=== PATIENT | male | born 1990 | race Caucasian/White ===

== ENCOUNTER 2017-02-18 17:50 | Emergency (ER) | payer OTHER ==
[~2017-02-18] VITALS: Ht 185.4 cm; Wt 77.1 kg
[~2017-02-18 17:50] MED LIST: COMPLERA 200 MG1 TAB PO; FLEXERIL 5MG TAB5 MG PO; IBUPROFEN800 M1 PO; LEVOTHYROXINE0.15 MG PO; MOBIC15 MG PO; MOTRIN800 MG PO; PERCOCET 325 MG1 TAB PO; ZOFRAN 4 MG TABL4 MG PO
[2017-02-18 18:19] LABS: ABSOLUTE BASOPHIL COUNT 0.1 /CUMM (0.0-0.2); ABSOLUTE EOSINOPHIL COUNT 0.4 /CUMM (0.0-0.7); ABSOLUTE LYMPH COUNT 3.5 /CUMM (1.2-3.4); ABSOLUTE MONOCYTE COUNT 0.7 /CUMM (0.10-0.60); BASOPHIL % 0.5 % (0.0-2.0); GRANULOCYTE % 52.1 % (42.2-75.2); HEMATOCRIT 39.1 % (42-52); MEAN CORPUSCULAR HGB 26.9 PG (27.0-31.0); MEAN CORPUSCULAR HGB CONC 33.6 G/DL (33.0-37.0); MEAN CORPUSCULAR VOLUME 80.1 FL (80.0-94.0); MEAN PLATELET VOLUME 9.1 FL (7.4-10.4); PLATELET COUNT 380 /CUMM (130-400); RBC DISTRIBUTION WIDTH 17.1 % (11.5-14.5); RED BLOOD CELL CT 4.88 /CUMM (4.70-6.10); WHITE BLOOD CELL COUNT 9.6 /CUMM (4.8-10.8)
[2017-02-18] MEDS ORDERED: LEVOTHYROXINE175 MCG PO (19:00)
[2017-02-18] MEDS ORDERED: COMPLERA TABLE1 EACH PO (19:00)
[2017-02-18 19:51] VITALS: BP 119/65
--- NOTE | 2017-02-18 20:23 | RADIOLOGY REPORT ---
EXAMINATION: XR CHEST CLINICAL INFORMATION: Chest pain COMPARISON: None TECHNIQUE: 2 views of the chest were obtained. FINDINGS: Partial visualization of cervical fusion hardware. Scoliotic curvature of the spine. The lungs are well expanded. No consolidation, edema, or effusion. While the left costophrenic angle appears blunted on the frontal view, this does not persist on the lateral view. No pneumothorax. The cardiomediastinal silhouette is within normal limits. IMPRESSION: No acute pulmonary findings.
--- NOTE | 2017-02-18 20:31 | ED CARDIAC/CP/PALPITATIONS ---
History of Present Illness General Chief Complaint: Chest Pain Stated Complaint: CHEST PAIN ALL DAY, NOW L HAND NUMB Source: patient Exam Limitations: no limitations Vital Signs & Intake/Output Vital Signs & Intake/Output Vital Signs Date Time Temp Pulse Resp B/P Pulse O2 O2 Flow FiO2 Ox Delivery Rate 02/18 1951 97.9 72 18 119/65 97 Room Air 02/18 1950 98 Room Air 02/18 1804 98.3 77 16 134/83 96 Allergies Coded Allergies: metoclopramide (From REGLAN) (DYSTONIC REACTION 01/18/16) Reconcile Medications Emtricitab/Rilpivirine/Tenofov (Complera Tablet) 200 MG-25 MG-300 MG TABLET 1 TAB PO DAILY ANTIVIRAL (Reported) Levothyroxine Sodium 175 MCG TABLET 1 TAB PO DAILY THYROID (Reported) Triage Note: PT STATES HE HAS HAD CHEST PAIN FOR 1 WEEK AND THEN TODAY HE HAD TINGLING RUNNING DOWN HIS LEFT ARM AND NUMBNESS. Triage Nurses Notes Reviewed? yes Onset: Abrupt Duration: week(s): (1), constant, continues in ED Timing: recent history Quality/Severity: moderate Location: left chest Radiation: no radiation HPI: 26-year-old male comes into emergency room with complaints of left-sided chest pain has been going on for 1 week continuously. Pain is now shooting down into his left arm. Pain is worse with movement. Denies any fever chills cough. She reports that today he has had some mild heaviness with his breathing as he describes it. Denies any prior history of this. Denies any trauma. Denies any other associated symptoms. Patient is feeling some associated tingling in his hand. Past History Travel History Traveled to [place] past 21 day No Medical History Any Pertinent Medical History? 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 No Review of Systems Review of Systems Constitutional: Reports: no symptoms. EENTM: Reports: no symptoms. Respiratory: Reports: see HPI. Cardiovascular: Reports: see HPI. GI: Reports: no symptoms. Genitourinary: Reports: no symptoms. Musculoskeletal: Reports: see HPI. Skin: Reports: no symptoms. Neurological/Psychological: Reports: no symptoms. Hematologic/Endocrine: Reports: no symptoms. Immunologic/Allergic: Reports: no symptoms. All Other Systems: Reviewed and Negative Physical Exam Physical Exam General Appearance: well developed/nourished, no apparent distress, alert Head: atraumatic, normal appearance Eyes: Bilateral: normal appearance, EOMI. Ears, Nose, Throat: normal pharynx, hearing grossly normal Neck: normal inspection, full range of motion Respiratory: normal breath sounds, no respiratory distress, chest wall tenderness left side Cardiovascular: regular rate/rhythm Gastrointestinal: soft Rectal: normal exam Back: normal inspection Extremities: normal inspection, normal range of motion Neurologic/Psych: awake, alert, oriented x 3, normal gait, normal mood/affect Skin: intact, normal color Core Measures ACS in differential dx? No Severe Sepsis Present: No Septic Shock Present: No Progress Differential Diagnosis: AMI, cholecystitis, costochondritis, musculoskeletal pain, myocarditis, pericarditis, pneumonia, pneumothorax, pulmonary embolism, PUD/GERD, PVCs/PACs, respiratory failure, unstable angina Plan of Care: Orders Procedure Date/time Status TROPONIN LEVEL 02/18 180 Complete MAGNESIUM 02/18 180 Complete COMPREHENSIVE METABOLIC PANEL 02/18 1802 Complete CHOLESTEROL 02/18 1802 Complete CBC WITHOUT DIFFERENTIAL 02/18 180 Complete EKG 02/18 1751 Active Laboratory Tests 02/18/17 1802: Anion Gap 14, Estimated GFR > 60, BUN/Creatinine Ratio 10.0, Glucose 107 H, Calcium 9.2, Magnesium 1.9, Total Bilirubin 0.6, AST 22, ALT 31, Alkaline Phosphatase 63, Troponin I < 0.01, Total Protein 7.4, Albumin 4.4, Globulin 3.0, Albumin/Globulin Ratio 1.5, Cholesterol 153, CBC w Diff NO MAN DIFF REQ, RBC 4.88, MCV 80.1, MCH 26.9 L, RDW 17.1 H, MPV 9.1, Gran % 52.1, Lymphocytes % 36.2, Monocytes % 7.2, Eosinophils % 4.0, Basophils % 0.5, Absolute Granulocytes 5.0, Absolute Lymphocytes 3.5 H, Absolute Monocytes 0.7 H, Absolute Eosinophils 0.4, Absolute Basophils 0.1, PUBS MCHC 33.6 Diagnostic Imaging: Viewed by Me: Radiology Read. Discussed w/RAD: Radiology Read. Radiology Impression: SERVICE DATE: 02/18/17 EXAM TYPE: RAD - XRY-CHEST XRAY, PA AND LATERAL EXAMINATION: XR CHEST CLINICAL INFORMATION: Chest pain COMPARISON: None TECHNIQUE: 2 views of the chest were obtained. FINDINGS: Partial visualization of cervical fusion hardware. Scoliotic curvature of the spine. The lungs are well expanded. No consolidation, edema, or effusion. While the left costophrenic angle appears blunted on the frontal view, this does not persist on the lateral view. No pneumothorax. The cardiomediastinal silhouette is within normal limits. IMPRESSION: No acute pulmonary findings. DICTATED BY: RACHEL SMART MD DATE/TIME DICTATED:02/18/172014 BRAND INSPECTOR: YAN DATE/TIME TRANSCRIBED:02/18/172014 Initial ED EKG: normal intervals, normal p-waves, normal sinus rhythm, rate (76) , nonspecific ST T wave chg Prior EKG: unchanged Departure Departure Disposition: HOME OR SELF CARE Condition: Stable Clinical Impression Primary Impression: Chest wall pain Referrals: AMANDA MERINO MD (PCP/Family) Additional Instructions: Take ibuprofen for pain. Follow-up with your primary care doctor. Return if any concerns worsening symptoms. Please go over all results of today's visit with your primary care doctor. Contact your primary care doctor to let them know you were here in the emergency room. There may be nonspecific findings which may not be related to your visit today here in the emergency room but may require further evaluation and chronic monitoring by your primary care doctor. If you had a laceration today the chance of foreign body always remains. You should follow-up with your primary care doctor for recheck in 3-5 days for a wound check. If you had an x-ray done there is a chance that a fracture could have been missed on initial read and you should follow-up with your primary care doctor for repeat x-rays if symptoms persist. If your blood pressure was elevated here in the emergency room please have rechecked by her primary care doctor within the next 48 hours by your primary care doctor. If you were prescribed a narcotic here in the emergency room or any type of controlled substances you're not allowed to drive while taking this medication or operate any type of heavy machinery. Narcotics can make you feel lightheaded dizziness nausea and can cause constipation. You may need to metal pickling equipment operator a stool softener. Thank you for choosing [facility] emergency room. Please return to the emergency room immediately if you have any other concerns worsening of symptoms. Departure Forms: Customer Survey General Discharge Information Comments 02/18/2017 9:11:53 PM Patient clinically looks well. Nontoxic-appearing. In no apparent distress. Pain is consistent with muscle skeletal pain. Pain is reproducible. Worse with range of motion. Normal troponin. A tenuous pain for one week. No suspicion for pulmonary embolism. Patient has a history of HIV. Last viral load undetectable. Critical Care Note Critical Care Note Critical Care Time: non-applicable
== END 2017-02-18 20:42 ==
LOC: ERH 17:50
PROVIDERS: Emergency Medicine
DX: R07.89 Other chest pain (principal)
CPT/HCPCS: 93005; 93010

== ENCOUNTER 2017-12-01 12:04 | Emergency (ER) | payer OTHER ==
[~2017-12-01] VITALS: Ht 185.4 cm; Wt 68.0 kg
[~2017-12-01 12:04] MED LIST changes: +COMPLERA TABLE1 EACH PO; +LEVOTHYROXINE175 MCG PO
--- NOTE | 2017-12-01 13:11 | RADIOLOGY REPORT ---
EXAMINATION: CR CHEST CLINICAL INFORMATION: Cough. Pneumonia. COMPARISON: Chest x-ray dated 02/18/2017. TECHNIQUE: 2 views of the chest were obtained on 3 images. FINDINGS: The cardiomediastinal silhouette is within normal limits in size. There is blunting of the left CP angle, similar to the previous exam, likely related to chronic pleural thickening. The posterior CP angles are not fully included on this exam. No focal consolidation or pneumothorax is seen. Convex right thoracic scoliosis is noted. Lower cervical spine fusion hardware is seen. IMPRESSION: Chronic blunting of the left CP angle, likely related to pleural thickening. No focal pneumonia.
--- NOTE | 2017-12-01 17:33 | ED INFLUENZA/URI COMPLAINT ---
History of Present Illness General Chief Complaint: Upper Respiratory Sx/Fever Stated Complaint: URI Source: patient Exam Limitations: no limitations Vital Signs & Intake/Output Vital Signs & Intake/Output Vital Signs Date Time Temp Pulse Resp B/P B/P Pulse O2 O2 Flow FiO2 Mean Ox Delivery Rate 12/01 1926 98.4 70 20 132/78 98 ED Intake and Output 12/02 0000 12/01 1200 Intake Total Output Total Balance Patient 150 lb Weight Weight Reported by Patient Measurement Method Allergies Coded Allergies: metoclopramide (From REGLAN) (DYSTONIC REACTION 01/18/16) Reconcile Medications Albuterol Sulfate (Proventil Hfa) 90 MCG HFA.AER.AD 2 PUF INH Q4 PRN shortness of breath Emtricitab/Rilpivirine/Tenofov (Complera Tablet) 200 MG-25 MG-300 MG TABLET 1 TAB PO DAILY ANTIVIRAL (Reported) Levothyroxine Sodium 175 MCG TABLET 1 TAB PO DAILY THYROID (Reported) Triage Note: PT C/O FLU LIKE SYMPTOMS FOR PAST WEEK. TOOK TAMIFLU AND MEDS FOR SINUS INFECTION AND COUGH. PT STATES HE HAS BEEN ON MEDS SINCE FRIDAY BUT HE IS GETTING WORSE. HX HIV Triage Nurses Notes Reviewed? yes Onset: Gradual Duration: getting worse Timing: recent history Severity: moderate HPI: 27yo male with hx of HIV presents to ED complaining of cough, congestion, intermittent fevers/chills, nausea, vomiting beginning 6 days ago. Patient was seen and evaluated at an urgent care 2 days ago and started on Tamiflu, Augmentin, Tessalon Perles. Patient states that despite these medications his symptoms have gotten worse. The patient has been drinking teas and resting as well. Patient states his last appointment with his HIV specialist was last month, viral load was slightly detectable, CD4 count in 500s. Patient also reports that he was off his viral medication for approximately one month due to communication labs with his specialist, he just restarted these meds within the past 2 weeks. Patient denies diarrhea, sick contact, abdominal pain, hemoptysis. (Winsome GALVIN,Katelyn Trinidad) Past History Travel History Traveled to [place] past 21 day No Medical History Any Pertinent Medical History? 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 No (Katelyn Farnsworth) Review of Systems Review of Systems Constitutional: Reports: see HPI. EENTM: Reports: see HPI. Respiratory: Reports: see HPI. Cardiovascular: Reports: no symptoms. GI: Reports: see HPI. Genitourinary: Reports: no symptoms. Musculoskeletal: Reports: no symptoms. Skin: Reports: no symptoms. Neurological/Psychological: Reports: no symptoms. Hematologic/Endocrine: Reports: no symptoms. Immunologic/Allergic: Reports: no symptoms. All Other Systems: Reviewed and Negative (Katelyn Farnsworth) Physical Exam Physical Exam General Appearance: well developed/nourished, no apparent distress, alert, awake Head: atraumatic, normal appearance Eyes: Bilateral: normal appearance. Ears, Nose, Throat: normal ENT inspection, moist mucous membrane, hearing grossly normal, pharynx normal Neck: normal inspection, supple, full range of motion Respiratory: normal breath sounds, no respiratory distress, lungs clear Cardiovascular: regular rate/rhythm Gastrointestinal: normal bowel sounds, soft, non-tender, no organomegaly Back: normal inspection, normal range of motion Extremities: normal inspection, normal range of motion Neurologic/Psych: awake, alert, oriented x 3 Skin: intact, normal color, warm/dry Core Measures Sepsis Present: No Sepsis Focused Exam Completed? No (Katelyn Farnsworth) Progress Differential Diagnosis: influenza, neutropenia, otitis, pneumonia, pharyngitis, sinusitis Plan of Care: Orders Procedure Date/time Status LACTIC ACID 12/01 1754 Complete COMPREHENSIVE METABOLIC PANEL 12/01 1754 Complete CBC WITHOUT DIFFERENTIAL 12/01 1754 Complete Laboratory Tests 12/01/172054: Lactic Acid Cancelled 12/01/17 1827: Anion Gap 14, Estimated GFR > 60, BUN/Creatinine Ratio 17.8, Glucose 91, Lactic Acid 0.6 L, Calcium 9.1, Total Bilirubin 0.4, AST 30, ALT 36, Alkaline Phosphatase 67, Total Protein 7.2, Albumin 4.4, Globulin 2.8, Albumin/Globulin Ratio 1.6, CBC w Diff NO MAN DIFF REQ, RBC 5.13, MCV 80.5, MCH 25.4 L, MCHC 31.6 L, RDW 14.6 H, MPV 6.6 L, Gran % 45.4, Lymphocytes % 39.3, Monocytes % 10.2 H, Eosinophils % 4.8, Basophils % 0.3, Absolute Granulocytes 3.4, Absolute Lymphocytes 3.0, Absolute Monocytes 0.8 H, Absolute Eosinophils 0.4, Absolute Basophils 0 Given patient's history of HIV with recent lapse antiviral medications will obtain blood work. Chest x-ray without acute abnormality, flu swab was negative. Blood work is stable. These findings were discussed with the patient. Patient instructed to continue Augmentin and Tamiflu, he has flulike symptoms despite flu negative swab. Patient informed it could still be the flu or a different URI viral infection. He will also initiate humidified air, albuterol inhaler and cough syrup. He will return with any worsening symptoms or other concerns. The patient is in no acute distress, vital signs are stable, he is nontoxic appearing. The patient agrees with the plan of care. Diagnostic Imaging: Viewed by Me: Radiology Read. Discussed w/RAD: Radiology Read. Radiology Impression: PATIENT: SHADI ISAAC PRESENT AGE: 27 PATIENT ACCOUNT NO: [id number] : 89 LOCATION: [facility] ORDERING PHYSICIAN: Drake Rodriguez DO (TBS) SERVICE DATE: 12/01/17 EXAM TYPE: RAD - XRY-CHEST XRAY, TWO VIEWS EXAMINATION: CR CHEST CLINICAL INFORMATION : Cough. Pneumonia. COMPARISON: Chest x-ray dated 02/18/2017. TECHNIQUE: 2 views of the chest were obtained on 3 images. FINDINGS: The cardiomediastinal silhouette is within normal limits in size. There is blunting of the left CP angle, similar to the previous exam, likely related to chronic pleural thickening. The posterior CP angles are not fully included on this exam. No focal consolidation or pneumothorax is seen. Convex right thoracic scoliosis is noted. Lower cervical spine fusion hardware is seen. IMPRESSION: Chronic blunting of the left CP angle, likely related to pleural thickening. No focal pneumonia. DICTATED BY: Carley MODI,Amanda Medrano DATE/TIME DICTATED:011304 LABORATORY APPARATUS GLASS BLOWER:YAN DATE/TIME TRANSCRIBED:12/01/171304 CONFIDENTIAL, DO NOT COPY WITHOUT APPROPRIATE AUTHORIZATION. <Electronically signed in Other Vendor System> SIGNED BY: Amanda Howe MD 12/01/17 1311 Initial ED EKG: none (Winsome GALVIN,Katelyn Trinidda) Departure Departure Disposition: HOME OR SELF CARE Condition: Stable Clinical Impression Primary Impression: Flu-like symptoms Secondary Impressions: Viral URI Referrals: Patient Has No Primary Care Dr (PCP/Family) Additional Instructions: Continue Augmentin and Tamiflu as prescribed by urgent care previously. He may also continue Tessalon Perles or he may try these and asked or Robitussin for cough. Increase her fluids and rest. Your prescribed albuterol inhaler to use as needed for excessive coughing or shortness of breath. Please monitor for signs of worsening symptoms and return to the emergency department if symptoms are worsening, also inform your specialist about today's visit to the emergency department. Departure Forms: Customer Survey General Discharge Information Prescriptions: Current Visit Scripts Albuterol Sulfate (Proventil Hfa) 2 PUF INH Q4 PRN shortness of breath #1 INHAL (Katelyn Farnsworth) PA/WEB DEVELOPMENT INTERN Co-Sign Statement Statement: ED Attending supervision documentation- [] I saw and evaluated the patient. I have also reviewed all the pertinent lab results and diagnostic results. I agree with the findings and the plan of care as documented in the PA's/WEB DEVELOPMENT INTERN's documentation. [X] I have reviewed the ED Record and agree with the PA's/WEB DEVELOPMENT INTERN's documentation. [] Additions or exceptions (if any) to the PAs/WEB DEVELOPMENT INTERN's note and plan are summarized below: [] (Drake Rodriguez DO
[2017-12-01 18:41] LABS: ABSOLUTE BASOPHIL COUNT 0 /CUMM (0.0-0.2); ABSOLUTE EOSINOPHIL COUNT 0.4 /CUMM (0.0-0.7); ABSOLUTE GRANULOCYTE CT 3.4 /CUMM (1.4-6.5); ABSOLUTE MONOCYTE COUNT 0.8 /CUMM (0.10-0.60); BASOPHIL % 0.3 % (0.0-2.0); EOSINOPHIL % 4.8 % (0-5); GRANULOCYTE % 45.4 % (42.2-75.2); HEMATOCRIT 41.3 % (42-52); MEAN CORPUSCULAR HGB 25.4 PG (27.0-31.0); MEAN CORPUSCULAR HGB CONC 31.6 G/DL (33.0-37.0); MEAN CORPUSCULAR VOLUME 80.5 FL (80.0-94.0); MEAN PLATELET VOLUME 6.6 FL (7.4-10.4); PLATELET COUNT 293 /CUMM (130-400); RBC DISTRIBUTION WIDTH 14.6 % (11.5-14.5); RED BLOOD CELL CT 5.13 /CUMM (4.70-6.10); WHITE BLOOD CELL COUNT 7.6 /CUMM (4.8-10.8)
[2017-12-01] MEDS ORDERED: PROVENTIL HFA6.7 GM INH (19:20)
[2017-12-01 19:26] VITALS: BP 132/78
== END 2017-12-01 19:26 ==
LOC: ERH 12:04
PROVIDERS: Physician Assistant
DX: J06.9 Acute upper respiratory infection, unspecified (principal)
CPT/HCPCS: 71046; 87804; 87804-59